=== PATIENT | female | born 1995 | race Caucasian/White ===

== ENCOUNTER → 2022-07-18 | Outpatient (CLI) | payer OTHER | LOC: M LAB 11:17 | PROVIDERS: ATTEND Family Medicine | DX: E66.9 Obesity, unspecified (principal) | CPT/HCPCS: 36415; 82533; G0480 ==

== ENCOUNTER → 2022-09-18 | Outpatient (CLI) | payer OTHER | LOC: M RAD 10:49 | PROVIDERS: ATTEND Family Medicine | DX: N92.6 Irregular menstruation, unspecified (principal) ==

== ENCOUNTER → 2022-09-23 | Outpatient (CLI) | payer OTHER ==
[2022-09-23 12:09] LABS: BASO # 0.1 10^3/uL (0.0-0.2); BASO % 0.9 % (0.0-1.0); EOS # 0.3 10^3/uL (0.0-0.5); EOS % 2.7 % (0.0-3.0); HEMATOCRIT 46.1 % (36.0-47.0); LYMPH # 1.7 10^3/uL (1.5-5.0); MEAN CORPUSCULAR HEMOGLOBIN 28.1 pg (27.0-33.0); MEAN CORPUSCULAR HGB CONC 32.5 g/dl (32.0-36.5); MEAN CORPUSCULAR VOLUME 86.5 fl (80.0-96.0); MONO # 0.5 10^3/uL (0.0-0.8); MONO % 5.3 % (2.0-8.0); NEUTROPHILS # 6.6 10^3/uL (1.5-8.5); NEUTROPHILS % 71.7 % (36.0-66.0); PLATELET COUNT, AUTOMATED 203 10^3/uL (150-450); RED BLOOD COUNT 5.33 10^6/uL (4.00-5.40); WHITE BLOOD COUNT 9.2 10^3/uL (4.0-10.0)
[2022-09-23 12:14] LABS: HEMOGLOBIN A1c 4.8 % (4.0-6.0)
[2022-09-23 12:31] LABS: ALBUMIN 4.3 G/DL (3.2-5.2); ALKALINE PHOSPHATASE 73 U/L (46-116); ALT/SGPT 49 U/L (7.0-40); AST/SGOT 24 U/L (<34); BILIRUBIN,TOTAL 0.9 MG/DL (0.3-1.2); BLOOD UREA NITROGEN 10 MG/DL (9-23); CALCIUM LEVEL 9.4 MG/DL (8.5-10.1); CARBON DIOXIDE LEVEL 27 MMOL/L (20-31); CHLORIDE LEVEL 105 MMOL/L (98-107); CHOLESTEROL LEVEL 147 MG/DL (<200); CHOLESTEROL RISK RATIO 2.67 (<5); CREATININE FOR GFR 0.58 MG/DL (0.55-1.30); GLOMERULAR FILTRATION RATE > 60.0 (>60); GLUCOSE, FASTING 78 MG/DL (60-100); LDL CHOLESTEROL 66.6 MG/DL (<100); LUTEINIZING HORMONE 5.9 mIU/ML; NON-HDL-C 92 MG/DL; POTASSIUM SERUM 4.4 MMOL/L (3.5-5.1); SODIUM LEVEL 136 MMOL/L (136-145); TRIGLYCERIDES LEVEL 127 MG/DL (<150)
[2022-09-23 12:32] LABS: FOLLICLE STIMULATING HORMONE 2.6 mIU/ML
[2022-09-24 10:09] LABS: TESTOSTERONE FREE (DIRECT) 2.2 pg/mL (0.0-4.2)
== END ==
LOC: M LAB 11:07
PROVIDERS: ATTEND Family Medicine
DX: E66.9 Obesity, unspecified (principal)

== ENCOUNTER → 2023-03-30 | Outpatient (CLI) | payer OTHER | LOC: M LAB 12:03 | PROVIDERS: ATTEND Family Medicine | DX: E66.9 Obesity, unspecified (principal) ==

== ENCOUNTER → 2025-02-18 | Outpatient (REF) | payer OTHER | LOC: M LAB REF 20:04 | PROVIDERS: ATTEND Physician Assistant | DX: R30.0 Dysuria (principal) ==